=== PATIENT | male | born 1980 | race Two or more races ===

== ENCOUNTER 2016-08-13 05:27 | Inpatient (IN) | payer OTHER ==
[~2016-08-13] VITALS: Ht 167.6 cm; Wt 84.8 kg
[~2016-08-13 05:27] MED LIST: ALBUTEROL INH INH; PREG75CA PO
[2016-08-13] MEDS ORDERED: LACTATED RINGERS 1,000 ML IV SCH (05:56)
[2016-08-13 05:57] VITALS: BP 123/78
[2016-08-13] MEDS ORDERED: LIDOCAINE 1%, 2ML SQ PRN (06:00)
[2016-08-13] MEDS ORDERED: FENTANYL PF 250 MCG/5ML ONE ×2 (06:42→08:43)
[2016-08-13] MEDS ORDERED: MIDAZOLAM 1 MG/ML, 2ML ONE (06:42)
[2016-08-13] MEDS ORDERED: BUPIVACAINE/PF-EPI 0.5% 1:200K ONE (06:59)
[2016-08-13] MEDS ORDERED: THROMBIN 5,000 UNIT VIAL TP ONE ×2 (07:00→09:23)
[2016-08-13] MEDS ORDERED: BACITRACIN 50,000 UNIT ONE (07:00)
[2016-08-13] MEDS ORDERED: METOCLOPRAMIDE 5 MG/ML, 2ML IV PRN (07:30)
[2016-08-13] MEDS ORDERED: hydrALAzine 20 MG/ML, 1ML IV PRN ×2 (07:30→14:30)
[2016-08-13] MEDS ORDERED: OXYcodone 5 MG/5 ML ORAL.SOL UDC PO PRN (07:30)
[2016-08-13] MEDS ORDERED: PROMETHAZINE 25 MG/ML, 1ML IV PRN (07:30)
[2016-08-13] MEDS ORDERED: HYDROmorphone 1 MG/ML, 1ML IV PRN (07:30)
[2016-08-13] MEDS ORDERED: ONDANSETRON 2MG/ML, 2ML IVPush PRN (07:30)
[2016-08-13] MEDS ORDERED: ACETAMINOPHEN 325 MG TABLET PO PRN (07:30)
[2016-08-13] MEDS ORDERED: LABETALOL 5MG/ML, 20ML IV PRN ×2 (07:30→14:30)
[2016-08-13] MEDS ORDERED: DEXAMETHASONE 4 MG/ML, 5ML ONE (07:36)
[2016-08-13] MEDS ORDERED: PROPOFOL 10 MG/ML, 20ML ONE (07:36)
[2016-08-13] MEDS ORDERED: NEOSTIGMINE 1 MG/ML, 10ML ONE (07:36)
[2016-08-13] MEDS ORDERED: CEFOTETAN 2 GM ONE (07:36)
[2016-08-13] MEDS ORDERED: ROCURONIUM 10 MG/ML ONE (07:36)
[2016-08-13] MEDS ORDERED: GLYCOPYRROLATE 0.2MG/1ML ONE (07:36)
[2016-08-13] MEDS ORDERED: ONDANSETRON 2MG/ML, 2ML ONE (07:36)
[2016-08-13] MEDS ORDERED: MANNITOL PMX 20% 0 ML ONE (07:37)
[2016-08-13] MEDS ORDERED: FENTANYL PF 100 MCG/2ML ONE (11:02)
[2016-08-13] MEDS ORDERED: OXYcodone 5 MG/5 ML ORAL.SOL UDC ONE (11:03)
[2016-08-13] MEDS: FENTANYL PF 100 MCG/2ML IV PRN ×2 (11:05→11:22)
[2016-08-13] MEDS ORDERED: ACETAMINOPHEN 650 MG/20.3 ML UDC ONE (11:06)
[2016-08-13] MEDS ORDERED: ACETAMINOPHEN 325 MG TABLET ONE (11:07)
[2016-08-13] MEDS ORDERED: OXYcodone/APAP 5/325MG TABLET ONE (14:24)
[2016-08-13] MEDS ORDERED: NS + 20MEQ KCL 1,000 ML IV SCH (14:30)
[2016-08-13] MEDS ORDERED: MAGNESIUM HYDROXIDE 8%, 30ML UDC PO PRN (14:30)
[2016-08-13] MEDS ORDERED: BISACODYL 10 MG SUPP PR PRN (14:30)
[2016-08-13] MEDS: OXYcodone/APAP 5/325MG TABLET PO PRN ×2 (14:37→23:13)
[2016-08-13] MEDS ORDERED: ENALAPRILAT 1.25 MG/ML, 2ML IV PRN (15:00)
[2016-08-13] MEDS ORDERED: ONDANSETRON 2MG/ML, 2ML IV PRN (15:00)
[2016-08-13] MEDS: CEFUROXIME 1.5 GM in SODIUM CHLORIDE 0.9% 50 ML IVPB SCH (16:17)
[2016-08-14] MEDS: CEFUROXIME 1.5 GM in SODIUM CHLORIDE 0.9% 50 ML IVPB SCH (00:27)
[2016-08-14] MEDS ORDERED: hydrALAzine 20 MG/ML, 1ML IV PRN (02:30)
[2016-08-14] MEDS: OXYcodone/APAP 5/325MG TABLET PO PRN ×5 (04:38→23:07)
[2016-08-14 05:55] LABS: BLOOD UREA NITROGEN 7 mg/dL (7-18)
[2016-08-14] MEDS: PREGABALIN 75 MG CAPSULE PO SCH (08:45)
[2016-08-14] MEDS: SENNA/DOCUSATE TABLET PO SCH (08:45)
[2016-08-14] MEDS ORDERED: ALBUTEROL SULFATE 2.5 MG/3 ML NPPB PRN (10:00)
[2016-08-14 12:25] VITALS: BP 135/88
[2016-08-14] MEDS ORDERED: NS + 20MEQ KCL 1,000 ML IV SCH (14:30)
[2016-08-14] MEDS: DIAZEPAM 5 MG TABLET PO PRN ×2 (14:40→23:06)
[2016-08-14 20:20] VITALS: BP 145/82
[2016-08-14] MEDS: morphine SULFATE 10 MG/ML, 1ML IV PRN (21:34)
[2016-08-15 00:16] VITALS: BP 136/88
[2016-08-15] MEDS: morphine SULFATE 10 MG/ML, 1ML IV PRN (02:00)
[2016-08-15 03:27] VITALS: BP 137/83
[2016-08-15 05:34] LABS: HEMOGLOBIN 13.4 g/dL (13.7-18.0)
[2016-08-15 05:46] LABS: BLOOD UREA NITROGEN 7 mg/dL (7-18)
[2016-08-15 07:00] VITALS: BP 133/87
[2016-08-15] MEDS: DIAZEPAM 5 MG TABLET PO PRN ×2 (07:31→22:21)
[2016-08-15] MEDS: OXYcodone/APAP 5/325MG TABLET PO PRN (07:31)
[2016-08-15] MEDS: PREGABALIN 75 MG CAPSULE PO SCH (09:59)
[2016-08-15] MEDS: SENNA/DOCUSATE TABLET PO SCH (09:59)
[2016-08-15] MEDS: HYDROcodone/APAP 5/325 TABLET PO PRN ×2 (11:27→15:32)
[2016-08-15 13:30] VITALS: BP 132/86
[2016-08-15 19:08] VITALS: BP 141/85
[2016-08-15] MEDS: OXYcodone/APAP 7.5/325MG TABLET PO PRN ×2 (20:01→20:36)
[2016-08-16 02:36] VITALS: BP 131/87
[2016-08-16] MEDS: OXYcodone/APAP 7.5/325MG TABLET PO PRN ×2 (02:36→08:20)
[2016-08-16] MEDS ORDERED: FLU VACC QS2016-17 (36MOS+)UP/PF 0.5 ML IM-VACC ONE (06:00)
[2016-08-16 06:02] LABS: HEMOGLOBIN 13.9 g/dL (13.7-18.0)
[2016-08-16 06:23] LABS: BLOOD UREA NITROGEN 10 mg/dL (7-18)
[2016-08-16 07:25] VITALS: BP 128/85
[2016-08-16] MEDS: PREGABALIN 75 MG CAPSULE PO SCH (08:20)
[2016-08-16] MEDS: SENNA/DOCUSATE TABLET PO SCH (08:20)
[2016-08-16] MEDS ORDERED: DIAZ5TAB PO (08:53)
[2016-08-16] MEDS ORDERED: OXYC-223 PO (08:53)
== END 2016-08-16 09:18 | disposition home or self-care (01) | DRG 27 ==
LOC: ORIP 05:27 → CCU 13:45 → 4NOR 08-14 12:20
PROVIDERS: ADMIT Neurological Surgery; ATTEND Neurological Surgery
PROC: 00NW0ZZ Release Cervical Spinal Cord, Open Approach (ICD-10-PCS; 2016-08-13)
PROC: 00N00ZZ Release Brain, Open Approach (ICD-10-PCS; principal; 2016-08-13 07:30)
DX: G93.5 Compression of brain (principal); Z23 Encounter for immunization
CPT/HCPCS: 36415; 80048; 85025; 86850; 86900; 87081; 90686; C1713; J0697; J1100; J2250; J2405; J2704; J2710; J3010; J3480; J3490; C1781; J2270; J7120; S0074